=== PATIENT | female | born 1975 | race African-American/Black ===

== ENCOUNTER 2020-05-13 01:00 | Inpatient (IN) | payer BC ==
[~2020-05-13] VITALS: Ht 180.3 cm; Wt 92.2 kg
[2020-05-13] VITALS (9 sets, daily range): BP systolic 106–145; BP diastolic 51–75
[2020-05-13] MEDS ORDERED: UNABLE MC (01:57)
--- NOTE | 2020-05-13 02:13 | PHYS DOC ---
Past Medical History Past Medical History: Diabetes-Type II Past Surgical History: No Surgical History Smoking Status: Never Smoker Alcohol Use: None Drug Use: None General Adult EDM: Chief Complaint: BLOOD SUGAR PROBLEM HPI: HPI: 45-year-old female presents to the emergency department with abdominal pain, na usea and vomiting, and extreme fatigue which has been worse over the last 2 days. Last week she was diagnosed with type 2 diabetes for which she was given metformin. She has been taking her metformin and checking her blood sugars daily and states that it is been consistently in the 240s. She is progressively felt more fatigued over the past week and called her primary care physician this morning for which she gave her a one-time dosage of Ozempic. She states that this did not help and only made it worse. This evening at 2200 she took her blood sugar medication, but she threw it up soon after. She states that she no longer feels abdominal pain but she does feel lightheaded, fatigued, and shortness of breath. Patient states that she checked her urine for ketones and said that it was "moderate". Denies . Review of Systems: Review of Systems: Constitutional: Denies fever or chills; reports malaise and fatigue Eyes: Denies redness or eye pain HENT: Denies nasal congestion or sore throat Respiratory: Denies cough or shortness of breath Cardiovascular: Denies chest pain or palpitations GI: Reports abdominal pain, nausea, and vomiting : Denies dysuria or hematuria Musculoskeletal: Denies back pain or joint pain Integument: Denies rash or skin lesions Neurologic: Denies headache, focal weakness or sensory changes Complete systems were reviewed and found to be within normal limits, except as documented in this note. Allergies: Allergies: Allergies Coded Allergies Type Severity Reaction Last Updated Verified No Known Drug Allergies 05/13/20 No Physical Exam: PE: Constitutional: Well developed, well nourished, no acute distress, non-toxic appearance HENT: Normocephalic, atraumatic, oropharynx tacky Eyes: PERRL, EOMI, conjunctiva normal, no discharge, no nystagmus Neck: Normal range of motion, supple Lungs & Thorax: No acute respiratory distress. Regular rise and fall the chest bilaterally. Abdomen: Soft, no tenderness Skin: Warm, dry, no erythema, no rash Extremities: No tenderness, ROM intact, no edema Neurologic: Alert and oriented X 3, normal motor function, normal sensory function, no focal deficits noted Psychologic: Affect normal, judgment normal Current Patient Data: Labs: Laboratory Tests Test 05/13/20 01:44 Glucose (Fingerstick) 272 mg/dL (70-99) H EKG: EKG: [] Radiology/Procedures: Radiology/Procedures: [] Course & Med Decision Making: Course & Med Decision Making Patient presented to the emergency department for nausea, vomiting, feeling lightheaded, and feeling progressively fatigued. She was diagnosed with diabetes 1 week ago. She has not been able to control her blood sugar since that time she was diagnosed with diabetes. Patient states that she vomited tonight before she came to emergency department and feels very lightheaded and weak. Labs obtained and posted to chart. Significant hyponatremia noted. Glucose elevated. Correct serum sodium still significantly low. IVF hydration given. Hyperglycemia addressed. Hypomagnesemia also addressed. Patient requiring admission for further evaluation and treatment. Discussed with Dr. Maya (hospitalist) who is in agreement with admission. Discussed findings and plan with patient, who acknowledges understanding and agreement. Dragon Disclaimer: Dragon Disclaimer: This electronic medical record was generated, in whole or in part, using a voice recognition dictation system. Departure Departure Impression: Primary Impression: Hyponatremia Additional Impressions: Hyperglycemia Hypomagnesemia Disposition: ADMITTED INPATIENT Admitting Physician: KATLIN (Gaudencio) Condition: STABLE Referrals: JANAE TAYLOR MD (PCP) Justicifation of Admission Dx: Justifications for Admission: Justification of Admission Dx: Yes Comments: Hyponatremia, Hyperglycemia, Hypomagnesemia Critical Care Time Critical care time was 30 minutes which includes time at bedside, spent in discussion of patient's care with specialists and/or family members, with interpretation of laboratory and/or radiological studies and is exclusive of procedures. JANAE GALLO DO May 13, 2020 02:13
[2020-05-13 02:20] LABS: BILIRUBIN,URINE SMALL (NEG); CLARITY,URINE CLEAR; COLOR,URINE YELLOW; NITRITE,URINE NEGATIVE (NEG); PROTEIN,URINE NEGATIVE (NEG-TRACE); UROBILINOGEN,URINE 0.2 mg/dL (0.2 mg/dL)
[2020-05-13 02:26] LABS: BACTERIA,URINE MODERATE /HPF (0-FEW); RBC,URINE 0 /HPF (0-2); SQUAMOUS EPITHELIAL CELL,UR FEW /LPF
[2020-05-13 02:27] LABS: AMORPHOUS SEDIMENT,UR PRESENT /HPF; GRANULAR CASTS,URINE FEW /HPF; HYALINE CASTS, URINE MODERATE /HPF
[2020-05-13] MEDS ORDERED: ONDANSETRON PF 4 MG/2 ML VIAL. IVP ONE (02:30)
[2020-05-13] MEDS ORDERED: IV NORMAL SALINE 1000ML BAG 1,000 ML IV ONE ×2 (02:30→04:30)
[2020-05-13] MEDS ORDERED: FAMOTIDINE 20 MG/2 ML VIAL IVP ONE (02:30)
[2020-05-13 03:47] LABS: BASO # 0.1 x10^3/uL (0.0-0.2); BASO % 1 % (0-3); EOS % 0 % (0-3); HEMATOCRIT 35.4 % (36.0-47.0); HEMOGLOBIN 12.4 g/dL (12.0-15.5); LYMPH # 2.5 x10^3/uL (1.0-4.8); LYMPH % 21 % (24-48); MEAN CORPUSCULAR HEMOGLOBIN 31 pg (25-35); MEAN CORPUSCULAR HGB CONC 35 g/dL (31-37); MEAN CORPUSCULAR VOLUME 88 fL (79-100); MONO # 0.8 x10^3/uL (0.0-1.1); MONO % 7 % (0-9); NEUT # 8.7 x10^3/uL (1.8-7.7); NEUT % 72 % (31-73); PLATELET COUNT 397 x10^3/uL (140-400); RED BLOOD COUNT 4.05 x10^6/uL (3.50-5.40); RED CELL DISTRIBUTION WIDTH 13.7 % (11.5-14.5); WHITE BLOOD COUNT 12.1 x10^3/uL (4.0-11.0)
[2020-05-13 04:03] LABS: ALBUMIN/GLOBULIN RATIO 1.1 (1.0-1.7); CALCIUM 9.4 mg/dL (8.5-10.1); CREATININE 0.9 mg/dL (0.6-1.0); GFR 81.6; MAGNESIUM 1.7 mg/dL (1.8-2.4); POTASSIUM 4.1 mmol/L (3.5-5.1); TOTAL BILIRUBIN 1.8 mg/dL (0.2-1.0); TOTAL PROTEIN 7.8 g/dL (6.4-8.2)
[2020-05-13] MEDS ORDERED: ONDANSETRON PF 4 MG/2 ML VIAL. IV PRN ×2 (04:15→10:15)
[2020-05-13] MEDS ORDERED: DEXTROSE 50% 25 GM / 50ML DISP.SYRIN. IV PRN (04:15)
[2020-05-13] MEDS ORDERED: MAGNESIUM SULFATE 2GM 50 ML IV ONE (04:30)
[2020-05-13] MEDS ORDERED: INSULIN REGULAR 100 UNIT/ML 3ML VIAL. SQ ONE (04:30)
[2020-05-13] MEDS: INSULIN LISPRO 300 UNITS/3 ML VIAL. SQ SCH ×2 (08:00→12:24)
--- NOTE | 2020-05-13 08:41 | PDOC1 ---
History and Physical Date of Admission Date of Admission DATE: 05/13/20 TIME: 08:40 Identification/Chief Complaint Chief Complaint weakness , low na , seen in ER WITH NA 114 Source Source: Patient History of Present Illness History of Present Illness SEEN IN ER WITH HYPERGLYCEMIA, 45-year-old female presents to the emergency department with abdominal pain, nausea and vomiting, and extreme fatigue which has been worse over the last 2 days. Last week she was diagnosed with type 2 diabetes for which she was given metformin. She has been taking her metformin and checking her blood sugars daily and states that it is been consistently in the 240s. progressively felt more fatigued over the past week and called her primary care physician this morning for which she gave her a one-time dosage of Ozempic. She states that this did not help and only made it worse. This evening at 2200 she took her blood sugar medication, but she threw it up soon after. She states that she no longer feels abdominal pain but she does feel lightheaded, fatigued, and shortness of breath. Patient states that she checked her urine for ketones and said that it was "moderate". 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, drinks about 8 8 oz glasses of h2o a day, new dx diabetes this past Sunday Past Medical History Past Medical History Past Medical History Past Medical History Past Medical History: Diabetes-Type II Past Surgical History: No Surgical History Smoking Status: Never Smoker Alcohol Use: None Drug Use: None Endocrine: Diabetes Family History Family History: Hypertension Social History Smoke: No ALCOHOL: occassional Drugs: None Current Problem List Problem List Problems Medical Problems: (1) Hypomagnesemia Status: Acute Current Medications Current Medications Current Medications Sodium Chloride 1,000 ml @ 1,000 mls/hr 1X ONCE IV Last administered on 05/13/20at 03:45; Start 05/13/20 at 02:30; Stop 05/13/20 at 03:29; Status DC Ondansetron HCl (Zofran) 4 mg 1X ONCE IVP Last administered on 05/13/20at 03:45; Start 05/13/20 at 02:30; Stop 05/13/20 at 02:31; Status DC Famotidine (Pepcid Vial) 20 mg 1X ONCE IVP Last administered on 05/13/20at 03:45; Start 05/13/20 at 02:30; Stop 05/13/20 at 02:31; Status DC Ondansetron HCl (Zofran) 4 mg PRN Q8HRS PRN IV NAUSEA/VOMITING 1ST CHOICE; Start 05/13/20 at 04:15; Stop 05/14/20 at 04:14 Sodium Chloride 1,000 ml @ 100 mls/hr 1X ONCE IV Last administered on 05/13/20at 07:21; Start 05/13/20 at 04:30; Stop 05/13/20 at 14:29 Insulin Human Lispro (HumaLOG) 0-5 UNITS TIDWMEALS SQ ; Start 05/13/20 at 08:00 Dextrose (Dextrose 50%-Water Syringe) 12.5 gm PRN Q15MIN PRN IV SEE COMMENTS; Start 05/13/20 at 04:15 Insulin Human Regular (HumuLIN R VIAL) 8 unit 1X ONCE SQ Last administered on 05/13/20at 07:32; Start 05/13/20 at 04:30; Stop 05/13/20 at 04:31; Status DC Magnesium Sulfate 50 ml @ 25 mls/hr 1X ONCE IV Last administered on 05/13/20at 07:24; Start 05/13/20 at 04:30; Stop 05/13/20 at 06:29; Status DC Active Scripts Active Reported Unable To Obtain Meds From Prior To Admit (Info) Each 1 Each Allergies Allergies: Coded Allergies: No Known Drug Allergies (Unverified , 05/13/20) ROS Review of System Review of Systems: Constitutional: Denies fever or chills; reports malaise and fatigue Eyes: Denies redness or eye pain HENT: Denies nasal congestion or sore throat Respiratory: Denies cough or shortness of breath Cardiovascular: Denies chest pain or palpitations GI: Reports abdominal pain, nausea, and vomiting : Denies dysuria or hematuria Musculoskeletal: Denies back pain or joint pain Integument: Denies rash or skin lesions Neurologic: Denies headache, focal weakness or sensory changes 14 PT systems were reviewed and found to be within normal limits, except as documented General: YES: Fatigue, Malaise ALLERGY AND IMMUNOLOGY: No: Hives, Insect Bite Sensitivity, Itchy/Watery Eyes, Nasal Congestion, Post Nasal Drip, Seasonal Allergies, Other Gastrointestinal: Yes Nausea Physical Exam Physical Exam PE: Constitutional: Well developed, well nourished, no acute distress, non-toxic appearance HENT: Normocephalic, atraumatic, oropharynx wnl Eyes: PERRL, EOMI, conjunctiva normal, no discharge, no nystagmus Neck: Normal range of motion, supple Lungs & Thorax: No acute respiratory distress. Regular rise and fall the chest bilaterally. Abdomen: Soft, no tenderness Skin: Warm, dry, no erythema, no rash Extremities: No tenderness, ROM intact, no edema Neurologic: Alert and oriented X 3, normal motor function, normal sensory function, no focal deficits noted Psychologic: Affect normal, judgment normal General: Alert, Oriented X3, Cooperative, No acute distress HEENT: Atraumatic, EOMI, Mucous membr. moist/pink Lungs: Clear to auscultation, Normal air movement Heart: RRR, no thrills Breasts: Not examined Abdomen: Normal bowel sounds, Soft, No tenderness Rectal Exam: not examined PELVIC: Examination not indicated Extremities: No cyanosis, No edema Skin: No rashes, No significant lesion Neuro: Normal speech, Normal tone, Cranial nerves 3-12 NL Psych/Mental Status: Mental status NL, Mood NL Vitals Vitals Vital Signs Date Time Temp Pulse Resp B/P (MAP) Pulse Ox O2 Delivery O2 Flow Rate FiO2 05/13/20 04:15 92 18 149/68 (95) 100 Room Air 05/13/20 01:42 98.3 98.3 Labs Labs Laboratory Tests Test 05/13/20 01:44 05/13/20 02:10 05/13/20 02:21 05/13/20 03:40 Glucose (Fingerstick) 272 mg/dL (70-99) Urine Collection Type Unknown Urine Color Yellow Urine Clarity Clear Urine pH 5.0 (<5.0-8.0) Urine Specific [place] >=1.030 (1.000-1.030) Urine Protein Negative mg/dL (NEG-TRACE) Urine Glucose (UA) >=1000 mg/dL (NEG) Urine Ketones (Stick) >=80 mg/dL (NEG) Urine Blood Negative (NEG) Urine Nitrite Negative (NEG) Urine Bilirubin Small (NEG) Urine Urobilinogen Dipstick 0.2 mg/dL (0.2 mg/dL) Urine Leukocyte Esterase Negative (NEG) Urine RBC 0 /HPF (0-2) Urine WBC 1-4 /HPF (0-4) Urine Squamous Epithelial Cells Few /LPF Urine Amorphous Sediment Present /HPF Urine Bacteria Moderate /HPF (0-FEW) Urine Hyaline Casts Moderate /HPF Urine Granular Casts Few /HPF Urine Mucus Mod /LPF Bedside Urine HCG, Qualitative Hcg negative (Negative) White Blood Count 12.1 x10^3/uL (4.0-11.0) Red Blood Count 4.05 x10^6/uL (3.50-5.40) Hemoglobin 12.4 g/dL (12.0-15.5) Hematocrit 35.4 % (36.0-47.0) Mean Corpuscular Volume 88 fL (79-100) Mean Corpuscular Hemoglobin 31 pg (25-35) Mean Corpuscular Hemoglobin Concent 35 g/dL (31-37) Red Cell Distribution Width 13.7 % (11.5-14.5) Platelet Count 397 x10^3/uL (140-400) Neutrophils (%) (Auto) 72 % (31-73) Lymphocytes (%) (Auto) 21 % (24-48) Monocytes (%) (Auto) 7 % (0-9) Eosinophils (%) (Auto) 0 % (0-3) Basophils (%) (Auto) 1 % (0-3) Neutrophils # (Auto) 8.7 x10^3/uL (1.8-7.7) Lymphocytes # (Auto) 2.5 x10^3/uL (1.0-4.8) Monocytes # (Auto) 0.8 x10^3/uL (0.0-1.1) Eosinophils # (Auto) 0.0 x10^3/uL (0.0-0.7) Basophils # (Auto) 0.1 x10^3/uL (0.0-0.2) Sodium Level 114 mmol/L (136-145) Potassium Level 4.1 mmol/L (3.5-5.1) Chloride Level 79 mmol/L (98-107) Carbon Dioxide Level 15 mmol/L (21-32) Anion Gap 20 (6-14) Blood Urea Nitrogen 11 mg/dL (7-20) Creatinine 0.9 mg/dL (0.6-1.0) Estimated GFR (Cockcroft-Gault) 81.6 BUN/Creatinine Ratio 12 (6-20) Glucose Level 285 mg/dL (70-99) Calcium Level 9.4 mg/dL (8.5-10.1) Magnesium Level 1.7 mg/dL (1.8-2.4) Total Bilirubin 1.8 mg/dL (0.2-1.0) Aspartate Amino Transf (AST/SGOT) 21 U/L (15-37) Alanine Aminotransferase (ALT/SGPT) 24 U/L (14-59) Alkaline Phosphatase 69 U/L (46-116) Total Protein 7.8 g/dL (6.4-8.2) Albumin 4.0 g/dL (3.4-5.0) Albumin/Globulin Ratio 1.1 (1.0-1.7) Acetone Level Neg (NEG) Test 05/13/20 07:29 05/13/20 08:05 Glucose (Fingerstick) 254 mg/dL (70-99) 254 mg/dL (70-99) Laboratory Tests Test 05/13/20 01:44 05/13/20 02:10 05/13/20 02:21 05/13/20 03:40 Glucose (Fingerstick) 272 mg/dL (70-99) Urine Collection Type Unknown Urine Color Yellow Urine Clarity Clear Urine pH 5.0 (<5.0-8.0) Urine Specific [place] >=1.030 (1.000-1.030) Urine Protein Negative mg/dL (NEG-TRACE) Urine Glucose (UA) >=1000 mg/dL (NEG) Urine Ketones (Stick) >=80 mg/dL (NEG) Urine Blood Negative (NEG) Urine Nitrite Negative (NEG) Urine Bilirubin Small (NEG) Urine Urobilinogen Dipstick 0.2 mg/dL (0.2 mg/dL) Urine Leukocyte Esterase Negative (NEG) Urine RBC 0 /HPF (0-2) Urine WBC 1-4 /HPF (0-4) Urine Squamous Epithelial Cells Few /LPF Urine Amorphous Sediment Present /HPF Urine Bacteria Moderate /HPF (0-FEW) Urine Hyaline Casts Moderate /HPF Urine Granular Casts Few /HPF Urine Mucus Mod /LPF Bedside Urine HCG, Qualitative Hcg negative (Negative) White Blood Count 12.1 x10^3/uL (4.0-11.0) Red Blood Count 4.05 x10^6/uL (3.50-5.40) Hemoglobin 12.4 g/dL (12.0-15.5) Hematocrit 35.4 % (36.0-47.0) Mean Corpuscular Volume 88 fL (79-100) Mean Corpuscular Hemoglobin 31 pg (25-35) Mean Corpuscular Hemoglobin Concent 35 g/dL (31-37) Red Cell Distribution Width 13.7 % (11.5-14.5) Platelet Count 397 x10^3/uL (140-400) Neutrophils (%) (Auto) 72 % (31-73) Lymphocytes (%) (Auto) 21 % (24-48) Monocytes (%) (Auto) 7 % (0-9) Eosinophils (%) (Auto) 0 % (0-3) Basophils (%) (Auto) 1 % (0-3) Neutrophils # (Auto) 8.7 x10^3/uL (1.8-7.7) Lymphocytes # (Auto) 2.5 x10^3/uL (1.0-4.8) Monocytes # (Auto) 0.8 x10^3/uL (0.0-1.1) Eosinophils # (Auto) 0.0 x10^3/uL (0.0-0.7) Basophils # (Auto) 0.1 x10^3/uL (0.0-0.2) Sodium Level 114 mmol/L (136-145) Potassium Level 4.1 mmol/L (3.5-5.1) Chloride Level 79 mmol/L (98-107) Carbon Dioxide Level 15 mmol/L (21-32) Anion Gap 20 (6-14) Blood Urea Nitrogen 11 mg/dL (7-20) Creatinine 0.9 mg/dL (0.6-1.0) Estimated GFR (Cockcroft-Gault) 81.6 BUN/Creatinine Ratio 12 (6-20) Glucose Level 285 mg/dL (70-99) Calcium Level 9.4 mg/dL (8.5-10.1) Magnesium Level 1.7 mg/dL (1.8-2.4) Total Bilirubin 1.8 mg/dL (0.2-1.0) Aspartate Amino Transf (AST/SGOT) 21 U/L (15-37) Alanine Aminotransferase (ALT/SGPT) 24 U/L (14-59) Alkaline Phosphatase 69 U/L (46-116) Total Protein 7.8 g/dL (6.4-8.2) Albumin 4.0 g/dL (3.4-5.0) Albumin/Globulin Ratio 1.1 (1.0-1.7) Acetone Level Neg (NEG) Test 05/13/20 07:29 05/13/20 08:05 Glucose (Fingerstick) 254 mg/dL (70-99) 254 mg/dL (70-99) VTE Prophylaxis Ordered VTE Prophylaxis Devices: Yes VTE Pharmacological Prophylaxi: Yes Assessment/Plan Assessment/Plan Impression: Hyponatremia, SEVERE , diif dx psychogenic h20 intake, hypothyroid, [place]'s MORBID OBESITY Hyperglycemia, HX DIABETES, UNCONTROLLED Hypomagnesemia METABOLIC ACIDOSIS ? SEC METFORMIN ADMITTED SERUM OSMOLALITY URINE OSMOLALITY BMP STAT NOW Consult nephrology TSH CXR a1c accuchecks dvt prophylaxis am, pm cortisol fluid restrict 77 min pt exam, chart review, > 50% of time spent with exam, chart review, pt care coordination Justicifation of Admission Dx: Justifications for Admission: Justification of Admission Dx: Yes MARISSA URBINA MD May 13, 2020 08:41
[2020-05-13] MEDS ORDERED: 0.9 % SODIUM CHLORIDE 10 ML DISP.SYRIN. IV PRN (10:15)
[2020-05-13] MEDS ORDERED: ACETAMINOPHEN 325 MG TABLET. PO PRN (10:15)
[2020-05-13] MEDS ORDERED: guaiFENesin ORAL 200 MG/10 ML LIQUID. PO PRN (10:15)
[2020-05-13] MEDS ORDERED: DOCUSATE SODIUM 100 MG CAPSULE. PO PRN (10:15)
[2020-05-13] MEDS ORDERED: cloNIDine HCL 0.1 MG TABLET PO PRN (10:15)
[2020-05-13] MEDS ORDERED: ALBUTEROL SULFATE 2.5 MG/3 ML NEBU. NEB PRN (10:15)
[2020-05-13] MEDS ORDERED: SODIUM PHOSPHATES 19/7GM 133 ML ENEMA. PR PRN (10:15)
[2020-05-13 10:47] LABS: CALCIUM 8.7 mg/dL (8.5-10.1); CREATININE 0.6 mg/dL (0.6-1.0); GFR 130.2; POTASSIUM 4.1 mmol/L (3.5-5.1)
[2020-05-13] MEDS ORDERED: DILT240C33 PO (11:27)
[2020-05-13] MEDS ORDERED: ERGO500027 PO (11:27)
[2020-05-13] MEDS ORDERED: CRESTOR40 MG PO (11:27)
[2020-05-13] MEDS ORDERED: LISI-334 PO (11:27)
[2020-05-13] MEDS ORDERED: SPIR50TA4 PO (11:27)
[2020-05-13] MEDS ORDERED: METF500T16 PO (11:27)
[2020-05-13] MEDS ORDERED: HYDR12.58 PO (11:27)
--- NOTE | 2020-05-13 11:55 | PDOC2 ---
CONSULT Date of Consult Date of Consult DATE: 05/13/20 TIME: 11:50 Reason for Consult Reason for Consult: LOW NA Referring Physician Referring Physician: CIARA Identification/Chief Complaint Chief Complaint NOT FEELING WELL, BODY ACHES AND CRAMPS Source Source: Chart review, Patient History of Present Illness Reason for Visit: THIS IS A 45 YR OLD NOT FEELING WELL. BODY CRAMPS AND ABD PAIN WITH N/V AND FATIGUE. NEW DX OF DM II FOR WHICH SHE WA STARTED ON METFORMIN. NA OF 114 AND RECHECK OF 118. HAS BEEN ON ALDACTONE FOR YEARS FOR SOME SKIN CONDITION AND ON HCTZ FOR HTN FOR YEARS. DENIED ANY EXCESSIVE WATER INTAKE. NO LOW BP HX NOTED. BG UP IN THE MID 200'S WITH MILD MET ACIDOSIS. RENAL FXN IS STABLE Past Medical History Cardiovascular: HTN Renal/: No pertinent hx Endocrine: Diabetes Family History Family History: Hypertension Social History No ALCOHOL: occassional Drugs: None Current Problem List Problem List Problems Medical Problems: (1) Hypomagnesemia Status: Acute Current Medications Current Medications Current Medications Sodium Chloride 1,000 ml @ 1,000 mls/hr 1X ONCE IV Last administered on 05/13/20at 03:45; Start 05/13/20 at 02:30; Stop 05/13/20 at 03:29; Status DC Ondansetron HCl (Zofran) 4 mg 1X ONCE IVP Last administered on 05/13/20at 03:45; Start 05/13/20 at 02:30; Stop 05/13/20 at 02:31; Status DC Famotidine (Pepcid Vial) 20 mg 1X ONCE IVP Last administered on 05/13/20at 03:45; Start 05/13/20 at 02:30; Stop 05/13/20 at 02:31; Status DC Ondansetron HCl (Zofran) 4 mg PRN Q8HRS PRN IV NAUSEA/VOMITING 1ST CHOICE; Start 05/13/20 at 04:15; Stop 05/14/20 at 04:14 Sodium Chloride 1,000 ml @ 100 mls/hr 1X ONCE IV Last administered on 05/13/20at 07:21; Start 05/13/20 at 04:30; Stop 05/13/20 at 14:29 Insulin Human Lispro (HumaLOG) 0-5 UNITS TIDWMEALS SQ ; Start 05/13/20 at 08:00 Dextrose (Dextrose 50%-Water Syringe) 12.5 gm PRN Q15MIN PRN IV SEE COMMENTS; Start 05/13/20 at 04:15 Insulin Human Regular (HumuLIN R VIAL) 8 unit 1X ONCE SQ Last administered on 05/13/20at 07:32; Start 05/13/20 at 04:30; Stop 05/13/20 at 04:31; Status DC Magnesium Sulfate 50 ml @ 25 mls/hr 1X ONCE IV Last administered on 05/13/20at 07:24; Start 05/13/20 at 04:30; Stop 05/13/20 at 06:29; Status DC Sodium Chloride (Normal Saline Flush) 3 ml QSHIFT PRN IV AFTER MEDS AND BLOOD DRAWS; Start 05/13/20 at 10:15 Ondansetron HCl (Zofran) 4 mg PRN Q4HRS PRN IV NAUSEA/VOMITING; Start 05/13/20 at 10:15 Acetaminophen (Tylenol) 650 mg PRN Q4HRS PRN PO TEMP OVER 100.4F OR MILD PAIN; Start 05/13/20 at 10:15 Clonidine HCl (Catapres) 0.1 mg PRN Q6HRS PRN PO SBP>160 OR DBP>90; Start 05/13/20 at 10:15 Sodium Monofluorophosphate (Fleet Adult) 133 ml PRN DAILY PRN [place] CONSTIPATION; Start 05/13/20 at 10:15 Docusate Sodium (Colace) 100 mg PRN BID PRN PO HARD STOOLS; Start 05/13/20 at 10:15 Albuterol Sulfate (Ventolin Neb Soln) 2.5 mg PRN Q4HRS PRN NEB SHORTNESS OF BREATH; Start 05/13/20 at 10:15 Guaifenesin (Robitussin) 200 mg PRN Q4HRS PRN PO COUGH; Start 05/13/20 at 10:15 Enoxaparin Sodium (Lovenox 40mg Syringe) 40 mg Q24H SQ ; Start 05/13/20 at 11:00 Active Scripts Active Reported Vitamin D2 (Ergocalciferol (Vitamin D2)) 1,250 Mcg Capsule 1,250 Mcg PO QSA Diltiazem 24Hr Cd (Diltiazem HCl) 240 Mg Cap.er.24h 240 Mg PO DAILY Lisinopril 20 Mg Tablet 20 Mg PO DAILY Spironolactone 50 Mg Tablet 1 Tab PO DAILY Crestor (Rosuvastatin Calcium) 40 Mg Tablet 20 Mg PO HS Hydrochlorothiazide Tablet (Hydrochlorothiazide) 12.5 Mg Tablet 12.5 Mg PO DAILY Metformin Hcl 500 Mg Tablet 500 Mg PO BIDWMEALS Allergies Allergies: Coded Allergies: No Known Drug Allergies (Unverified , 05/13/20) ROS General: YES: Fatigue, Malaise PSYCHOLOGICAL ROS: YES: Anxiety Eyes: Yes Decreased vision Respiratory: YES: Cough Gastrointestinal: Yes Nausea, Yes Vomiting, Yes Abdominal Pain Genitourinary: YES Other (MILD FREQUENCY) Musculoskeletal: Yes Muscular Weakness Neurological: Yes Weakness Skin: Yes Dry Skin Physical Exam General: Alert, Oriented X3, Cooperative, No acute distress HEENT: Atraumatic, PERRLA Lungs: Clear to auscultation Heart: Regular rate Abdomen: Normal bowel sounds, Soft, No tenderness Skin: No rashes Neuro: Normal speech, Sensation intact Psych/Mental Status: Mental status NL, Mood NL MUSCULOSKELETAL: No joint tenderness, No deformity Vitals VITALS Vital Signs Date Time Temp Pulse Resp B/P (MAP) Pulse Ox O2 Delivery O2 Flow Rate FiO2 05/13/20 11:48 98.6 105 18 124/73 (90) 97 Room Air 98.6 Labs Labs Laboratory Tests Test 05/13/20 01:44 05/13/20 02:10 05/13/20 02:21 05/13/20 03:40 Glucose (Fingerstick) 272 mg/dL (70-99) Urine Collection Type Unknown Urine Color Yellow Urine Clarity Clear Urine pH 5.0 (<5.0-8.0) Urine Specific [place] >=1.030 (1.000-1.030) Urine Protein Negative mg/dL (NEG-TRACE) Urine Glucose (UA) >=1000 mg/dL (NEG) Urine Ketones (Stick) >=80 mg/dL (NEG) Urine Blood Negative (NEG) Urine Nitrite Negative (NEG) Urine Bilirubin Small (NEG) Urine Urobilinogen Dipstick 0.2 mg/dL (0.2 mg/dL) Urine Leukocyte Esterase Negative (NEG) Urine RBC 0 /HPF (0-2) Urine WBC 1-4 /HPF (0-4) Urine Squamous Epithelial Cells Few /LPF Urine Amorphous Sediment Present /HPF Urine Bacteria Moderate /HPF (0-FEW) Urine Hyaline Casts Moderate /HPF Urine Granular Casts Few /HPF Urine Mucus Mod /LPF Bedside Urine HCG, Qualitative Hcg negative (Negative) White Blood Count 12.1 x10^3/uL (4.0-11.0) Red Blood Count 4.05 x10^6/uL (3.50-5.40) Hemoglobin 12.4 g/dL (12.0-15.5) Hematocrit 35.4 % (36.0-47.0) Mean Corpuscular Volume 88 fL (79-100) Mean Corpuscular Hemoglobin 31 pg (25-35) Mean Corpuscular Hemoglobin Concent 35 g/dL (31-37) Red Cell Distribution Width 13.7 % (11.5-14.5) Platelet Count 397 x10^3/uL (140-400) Neutrophils (%) (Auto) 72 % (31-73) Lymphocytes (%) (Auto) 21 % (24-48) Monocytes (%) (Auto) 7 % (0-9) Eosinophils (%) (Auto) 0 % (0-3) Basophils (%) (Auto) 1 % (0-3) Neutrophils # (Auto) 8.7 x10^3/uL (1.8-7.7) Lymphocytes # (Auto) 2.5 x10^3/uL (1.0-4.8) Monocytes # (Auto) 0.8 x10^3/uL (0.0-1.1) Eosinophils # (Auto) 0.0 x10^3/uL (0.0-0.7) Basophils # (Auto) 0.1 x10^3/uL (0.0-0.2) Sodium Level 114 mmol/L (136-145) Potassium Level 4.1 mmol/L (3.5-5.1) Chloride Level 79 mmol/L (98-107) Carbon Dioxide Level 15 mmol/L (21-32) Anion Gap 20 (6-14) Blood Urea Nitrogen 11 mg/dL (7-20) Creatinine 0.9 mg/dL (0.6-1.0) Estimated GFR (Cockcroft-Gault) 81.6 BUN/Creatinine Ratio 12 (6-20) Glucose Level 285 mg/dL (70-99) Calcium Level 9.4 mg/dL (8.5-10.1) Magnesium Level 1.7 mg/dL (1.8-2.4) Total Bilirubin 1.8 mg/dL (0.2-1.0) Aspartate Amino Transf (AST/SGOT) 21 U/L (15-37) Alanine Aminotransferase (ALT/SGPT) 24 U/L (14-59) Alkaline Phosphatase 69 U/L (46-116) Total Protein 7.8 g/dL (6.4-8.2) Albumin 4.0 g/dL (3.4-5.0) Albumin/Globulin Ratio 1.1 (1.0-1.7) Thyroid Stimulating Hormone (TSH) 1.041 uIU/mL (0.358-3.74) Acetone Level Neg (NEG) Test 05/13/20 07:29 05/13/20 08:05 05/13/20 10:30 05/13/20 11:39 Glucose (Fingerstick) 254 mg/dL (70-99) 254 mg/dL (70-99) 227 mg/dL (70-99) Sodium Level 118 mmol/L (136-145) Potassium Level 4.1 mmol/L (3.5-5.1) Chloride Level 85 mmol/L (98-107) Carbon Dioxide Level 19 mmol/L (21-32) Anion Gap 14 (6-14) Blood Urea Nitrogen 8 mg/dL (7-20) Creatinine 0.6 mg/dL (0.6-1.0) Estimated GFR (Cockcroft-Gault) 130.2 Glucose Level 212 mg/dL (70-99) Calcium Level 8.7 mg/dL (8.5-10.1) Cortisol AM Sample 26.7 ug/dL (4.3-22.4) Laboratory Tests Test 05/13/20 01:44 05/13/20 02:10 05/13/20 02:21 05/13/20 03:40 Glucose (Fingerstick) 272 mg/dL (70-99) Urine Collection Type Unknown Urine Color Yellow Urine Clarity Clear Urine pH 5.0 (<5.0-8.0) Urine Specific [place] >=1.030 (1.000-1.030) Urine Protein Negative mg/dL (NEG-TRACE) Urine Glucose (UA) >=1000 mg/dL (NEG) Urine Ketones (Stick) >=80 mg/dL (NEG) Urine Blood Negative (NEG) Urine Nitrite Negative (NEG) Urine Bilirubin Small (NEG) Urine Urobilinogen Dipstick 0.2 mg/dL (0.2 mg/dL) Urine Leukocyte Esterase Negative (NEG) Urine RBC 0 /HPF (0-2) Urine WBC 1-4 /HPF (0-4) Urine Squamous Epithelial Cells Few /LPF Urine Amorphous Sediment Present /HPF Urine Bacteria Moderate /HPF (0-FEW) Urine Hyaline Casts Moderate /HPF Urine Granular Casts Few /HPF Urine Mucus Mod /LPF Bedside Urine HCG, Qualitative Hcg negative (Negative) White Blood Count 12.1 x10^3/uL (4.0-11.0) Red Blood Count 4.05 x10^6/uL (3.50-5.40) Hemoglobin 12.4 g/dL (12.0-15.5) Hematocrit 35.4 % (36.0-47.0) Mean Corpuscular Volume 88 fL (79-100) Mean Corpuscular Hemoglobin 31 pg (25-35) Mean Corpuscular Hemoglobin Concent 35 g/dL (31-37) Red Cell Distribution Width 13.7 % (11.5-14.5) Platelet Count 397 x10^3/uL (140-400) Neutrophils (%) (Auto) 72 % (31-73) Lymphocytes (%) (Auto) 21 % (24-48) Monocytes (%) (Auto) 7 % (0-9) Eosinophils (%) (Auto) 0 % (0-3) Basophils (%) (Auto) 1 % (0-3) Neutrophils # (Auto) 8.7 x10^3/uL (1.8-7.7) Lymphocytes # (Auto) 2.5 x10^3/uL (1.0-4.8) Monocytes # (Auto) 0.8 x10^3/uL (0.0-1.1) Eosinophils # (Auto) 0.0 x10^3/uL (0.0-0.7) Basophils # (Auto) 0.1 x10^3/uL (0.0-0.2) Sodium Level 114 mmol/L (136-145) Potassium Level 4.1 mmol/L (3.5-5.1) Chloride Level 79 mmol/L (98-107) Carbon Dioxide Level 15 mmol/L (21-32) Anion Gap 20 (6-14) Blood Urea Nitrogen 11 mg/dL (7-20) Creatinine 0.9 mg/dL (0.6-1.0) Estimated GFR (Cockcroft-Gault) 81.6 BUN/Creatinine Ratio 12 (6-20) Glucose Level 285 mg/dL (70-99) Calcium Level 9.4 mg/dL (8.5-10.1) Magnesium Level 1.7 mg/dL (1.8-2.4) Total Bilirubin 1.8 mg/dL (0.2-1.0) Aspartate Amino Transf (AST/SGOT) 21 U/L (15-37) Alanine Aminotransferase (ALT/SGPT) 24 U/L (14-59) Alkaline Phosphatase 69 U/L (46-116) Total Protein 7.8 g/dL (6.4-8.2) Albumin 4.0 g/dL (3.4-5.0) Albumin/Globulin Ratio 1.1 (1.0-1.7) Thyroid Stimulating Hormone (TSH) 1.041 uIU/mL (0.358-3.74) Acetone Level Neg (NEG) Test 05/13/20 07:29 05/13/20 08:05 05/13/20 10:30 05/13/20 11:39 Glucose (Fingerstick) 254 mg/dL (70-99) 254 mg/dL (70-99) 227 mg/dL (70-99) Sodium Level 118 mmol/L (136-145) Potassium Level 4.1 mmol/L (3.5-5.1) Chloride Level 85 mmol/L (98-107) Carbon Dioxide Level 19 mmol/L (21-32) Anion Gap 14 (6-14) Blood Urea Nitrogen 8 mg/dL (7-20) Creatinine 0.6 mg/dL (0.6-1.0) Estimated GFR (Cockcroft-Gault) 130.2 Glucose Level 212 mg/dL (70-99) Calcium Level 8.7 mg/dL (8.5-10.1) Cortisol AM Sample 26.7 ug/dL (4.3-22.4) Assessment/Plan Assessment/Plan IMP SEVERE HYPONATREMIA NEW DX OF DM II HTN HX MET ACIDOSIS KETONURIA PLAN HYDRATION 3% SALINE CONSIDER INSULIN REPEAT UA S OSM URINE LYTES TSH WILL FOLLOW OSCAR MARTINEZ MD May 13, 2020 11:55
[2020-05-13] MEDS: ENOXAPARIN 40 MG/0.4 ML SYRINGE. SQ SCH (12:18)
--- NOTE | 2020-05-13 13:28 | RAD ---
ABDOMEN COMPLETE History: Reason: severe hyponatremia; NAUSEA/VOMITING / Spl. Instructions: / History: Comparison: None. Technique: Sonographic examination of the abdomen was performed and multiple grayscale and color Doppler static images were obtained. Findings: Liver demonstrates increased echogenicity. The liver measures 13.9 cm. Portal flow is patent. Common bile duct measures 4.3 mm in diameter. Gallbladder wall is normal. No cholelithiasis or pericholecystic fluid. Visualized pancreas is not well seen due to bowel gas. The right kidney measures 11.6 x 6.5 x 4.8 cm. No hydronephrosis. The left kidney measures 11.0 x 4.3 x 5.8 cm. No hydronephrosis. The spleen measures 7.7 cm. Visualized portions of the abdominal aorta and IVC are normal. IMPRESSION: 1. Increased hepatic echotexture, may indicate steatosis. Electronically signed by: Rashaun Goodman DO (05/13/2020 1:25 PM) [id number]
[2020-05-13] MEDS ORDERED: POTASSIUM CHLORIDE 10MEQ 100 ML IV PRN ×3 (14:30)
[2020-05-13] MEDS ORDERED: SODIUM CHLORIDE 3 % 500 ML IV ONE (14:30)
--- NOTE | 2020-05-13 15:14 | NUR ---
home meds sent with mother at bedside. pt wanted to keep Crestor as she does not want to take substitution. Crestor placed in ICU med basket for room 107
[2020-05-13] MEDS: INSULIN REGULAR VIAL 100 UNIT in IV NORMAL SALINE 100ML 100 ML IV PRN (15:16)
--- NOTE | 2020-05-13 16:11 | RAD ---
Single view of the chest. 05/13/2020 9:58 AM Indication: Reason: HYPONATREMIA / Spl. Instructions: / History: Comparison: None Findings: There is no focal consolidation. There is no pleural effusion or pneumothorax. The cardiomediastinal silhouette and pulmonary vasculature are within normal limits. No acute osseous abnormalities are seen. Impression: No evidence of acute cardiopulmonary process. Electronically signed by: Austin Berger MD (05/13/2020 4:08 PM) [id number]
[2020-05-13] MEDS: IV DEXTROSE 5% - 0.9 % NACL 1,000 ML IV SCH (16:25)
[2020-05-13 18:22] LABS: CALCIUM 7.9 mg/dL (8.5-10.1); CREATININE 0.8 mg/dL (0.6-1.0); GFR 93.4; POTASSIUM 3.3 mmol/L (3.5-5.1)
[2020-05-13 18:27] LABS: PHOSPHORUS 1.9 mg/dL (2.6-4.7)
[2020-05-13] MEDS: POTASSIUM PHOS,M-BASIC-D-BASIC 13.6 MMOL in IV NORMAL SALINE 250ML 250 ML IV SCH ×2 (19:13→23:00)
[2020-05-13 21:42] LABS: BILIRUBIN,URINE NEGATIVE (NEG); CLARITY,URINE CLEAR; COLOR,URINE YELLOW; NITRITE,URINE NEGATIVE (NEG); PH,URINE 5.5 (<5.0-8.0); PROTEIN,URINE NEGATIVE (NEG-TRACE); UROBILINOGEN,URINE 0.2 mg/dL (0.2 mg/dL)
[2020-05-13 21:54] LABS: BACTERIA,URINE MANY /HPF (0-FEW); RBC,URINE 0 /HPF (0-2); SQUAMOUS EPITHELIAL CELL,UR FEW /LPF
[2020-05-13] MEDS: NON FORMULARY ITEM (Rosuvastatin Calcium (Crestor) 20 MG) PO SCH (22:36)
[2020-05-13] MEDS: LISINOPRIL 20 MG TABLET PO SCH (22:37)
[2020-05-14] VITALS (15 sets, daily range): BP systolic 95–143; BP diastolic 38–69
[2020-05-14 00:09] LABS: HEMOGLOBIN A1C 10.6 % (4.8-5.6)
[2020-05-14] MEDS: IV DEXTROSE 5% - 0.9 % NACL 1,000 ML IV SCH (01:33)
[2020-05-14] MEDS: POTASSIUM PHOS,M-BASIC-D-BASIC 13.6 MMOL in IV NORMAL SALINE 250ML 250 ML IV SCH (03:27)
[2020-05-14] MEDS ORDERED: metFORMIN 500 MG TABLET PO SCH (08:00)
[2020-05-14 08:02] LABS: BASO # 0.1 x10^3/uL (0.0-0.2); BASO % 1 % (0-3); EOS % 0 % (0-3); HEMATOCRIT 29.1 % (36.0-47.0); HEMOGLOBIN 10.4 g/dL (12.0-15.5); LYMPH # 2.6 x10^3/uL (1.0-4.8); LYMPH % 35 % (24-48); MEAN CORPUSCULAR HEMOGLOBIN 31 pg (25-35); MEAN CORPUSCULAR HGB CONC 36 g/dL (31-37); MEAN CORPUSCULAR VOLUME 88 fL (79-100); MONO # 0.6 x10^3/uL (0.0-1.1); MONO % 8 % (0-9); NEUT # 4.1 x10^3/uL (1.8-7.7); NEUT % 55 % (31-73); PLATELET COUNT 373 x10^3/uL (140-400); RED BLOOD COUNT 3.33 x10^6/uL (3.50-5.40); WHITE BLOOD COUNT 7.4 x10^3/uL (4.0-11.0)
[2020-05-14 08:26] LABS: ALBUMIN 3.1 g/dL (3.4-5.0); CALCIUM 7.8 mg/dL (8.5-10.1); CREATININE 0.7 mg/dL (0.6-1.0); MAGNESIUM 2.1 mg/dL (1.8-2.4); PHOSPHORUS 3.5 mg/dL (2.6-4.7); POTASSIUM 3.1 mmol/L (3.5-5.1); TOTAL BILIRUBIN 1.4 mg/dL (0.2-1.0); TOTAL PROTEIN 6.2 g/dL (6.4-8.2)
[2020-05-14] MEDS ORDERED: POTASSIUM CHLORIDE 10MEQ 100 ML IV PRN (09:00)
[2020-05-14] MEDS: INSULIN REGULAR VIAL 100 UNIT in IV NORMAL SALINE 100ML 100 ML IV PRN (10:23)
[2020-05-14] MEDS: POTASSIUM CHLORIDE 10MEQ 100 ML IV SCH ×4 (10:23→17:06)
--- NOTE | 2020-05-14 11:05 | PDOC ---
[employer] PROGRESS NOTE Date of Service DOS: DATE: 05/14/20 TIME: 11:01 Chief Complaint Chief Complaint New diabetic with poorly controlled glucose Resolving DKA Elevated cortisol level Hyponatremia (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 History of Present Illness History of Present Illness 05/14/2020 Patient seen and examined in the ICU Discussed with RN We noted that her cortisol level is high Her anion gap is clear I gave orders for 5 units of NovoLog 3 times daily and 10 of Lantus at bedtime and we will stop her drip and transfer out of the ICU Vitals/I&O Vitals/I&O: Vital Signs Date Time Temp Pulse Resp B/P (MAP) Pulse Ox O2 Delivery O2 Flow Rate FiO2 05/14/20 10:29 99 16 95/50 (65) 99 Room Air 05/14/20 09:36 97.9 97.9 I & O 05/13/20 05/13/20 05/14/20 15:00 23:00 07:00 Intake Total 750 ml 2004 ml Output Total 400 ml 750 ml 800 ml Balance -400 ml 0 ml 1204 ml Physical Exam General: Alert, Oriented X3, Cooperative, No acute distress Heart: Regular rate Abdomen: Normal bowel sounds, Soft, No tenderness Extremities: No cyanosis, No edema Skin: No rashes Labs Labs: Laboratory Tests Test 05/13/20 11:39 05/13/20 16:20 05/13/20 17:43 05/13/20 18:10 Glucose (Fingerstick) 227 mg/dL (70-99) 213 mg/dL (70-99) 205 mg/dL (70-99) Sodium Level 122 mmol/L (136-145) Potassium Level 3.3 mmol/L (3.5-5.1) Chloride Level 90 mmol/L (98-107) Carbon Dioxide Level 19 mmol/L (21-32) Anion Gap 13 (6-14) Blood Urea Nitrogen 9 mg/dL (7-20) Creatinine 0.8 mg/dL (0.6-1.0) Estimated GFR (Cockcroft-Gault) 93.4 Glucose Level 229 mg/dL (70-99) Calcium Level 7.9 mg/dL (8.5-10.1) Phosphorus Level 1.9 mg/dL (2.6-4.7) Magnesium Level 2.0 mg/dL (1.8-2.4) Cortisol PM Sample 31.6 ug/dL (3.1-16.7) Test 05/13/20 20:05 05/13/20 21:14 05/13/20 21:20 05/13/20 22:17 Glucose (Fingerstick) 144 mg/dL (70-99) 144 mg/dL (70-99) 213 mg/dL (70-99) Urine Collection Type Unknown Urine Color Yellow Urine Clarity Clear Urine pH 5.5 (<5.0-8.0) Urine Specific [place] 1.015 (1.000-1.030) Urine Protein Negative mg/dL (NEG-TRACE) Urine Glucose (UA) 500 mg/dL (NEG) Urine Ketones (Stick) 40 mg/dL (NEG) Urine Blood Negative (NEG) Urine Nitrite Negative (NEG) Urine Bilirubin Negative (NEG) Urine Urobilinogen Dipstick 0.2 mg/dL (0.2 mg/dL) Urine Leukocyte Esterase Negative (NEG) Urine RBC 0 /HPF (0-2) Urine WBC 1-4 /HPF (0-4) Urine Squamous Epithelial Cells Few /LPF Urine Bacteria Many /HPF (0-FEW) Test 05/13/20 23:22 05/14/20 00:26 05/14/20 01:31 05/14/20 02:35 Glucose (Fingerstick) 146 mg/dL (70-99) 107 mg/dL (70-99) 126 mg/dL (70-99) 138 mg/dL (70-99) Test 05/14/20 03:44 05/14/20 04:49 05/14/20 05:53 05/14/20 07:06 Glucose (Fingerstick) 152 mg/dL (70-99) 140 mg/dL (70-99) 139 mg/dL (70-99) 146 mg/dL (70-99) Test 05/14/20 07:50 05/14/20 09:30 05/14/20 10:39 White Blood Count 7.4 x10^3/uL (4.0-11.0) Red Blood Count 3.33 x10^6/uL (3.50-5.40) Hemoglobin 10.4 g/dL (12.0-15.5) Hematocrit 29.1 % (36.0-47.0) Mean Corpuscular Volume 88 fL (79-100) Mean Corpuscular Hemoglobin 31 pg (25-35) Mean Corpuscular Hemoglobin Concent 36 g/dL (31-37) Red Cell Distribution Width 14.0 % (11.5-14.5) Platelet Count 373 x10^3/uL (140-400) Neutrophils (%) (Auto) 55 % (31-73) Lymphocytes (%) (Auto) 35 % (24-48) Monocytes (%) (Auto) 8 % (0-9) Eosinophils (%) (Auto) 0 % (0-3) Basophils (%) (Auto) 1 % (0-3) Neutrophils # (Auto) 4.1 x10^3/uL (1.8-7.7) Lymphocytes # (Auto) 2.6 x10^3/uL (1.0-4.8) Monocytes # (Auto) 0.6 x10^3/uL (0.0-1.1) Eosinophils # (Auto) 0.0 x10^3/uL (0.0-0.7) Basophils # (Auto) 0.1 x10^3/uL (0.0-0.2) Sodium Level 130 mmol/L (136-145) Potassium Level 3.1 mmol/L (3.5-5.1) Chloride Level 98 mmol/L (98-107) Carbon Dioxide Level 23 mmol/L (21-32) Anion Gap 9 (6-14) Blood Urea Nitrogen 7 mg/dL (7-20) Creatinine 0.7 mg/dL (0.6-1.0) Estimated GFR (Cockcroft-Gault) 109.0 BUN/Creatinine Ratio 10 (6-20) Glucose Level 154 mg/dL (70-99) Calcium Level 7.8 mg/dL (8.5-10.1) Phosphorus Level 3.5 mg/dL (2.6-4.7) Magnesium Level 2.1 mg/dL (1.8-2.4) Total Bilirubin 1.4 mg/dL (0.2-1.0) Aspartate Amino Transf (AST/SGOT) 16 U/L (15-37) Alanine Aminotransferase (ALT/SGPT) 20 U/L (14-59) Alkaline Phosphatase 58 U/L (46-116) Total Protein 6.2 g/dL (6.4-8.2) Albumin 3.1 g/dL (3.4-5.0) Albumin/Globulin Ratio 1.0 (1.0-1.7) Glucose (Fingerstick) 206 mg/dL (70-99) 209 mg/dL (70-99) Assessment and Plan Assessmemt and Plan Problems Medical Problems: (1) Hypomagnesemia Status: Acute New diabetic with poorly controlled glucose Resolving DKA Elevated cortisol level Hyponatremia (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 Plan Start scheduled insulin NovoLog and Lantus Diabetic education Home meds DVT prophylaxis Full code Transfer out of ICU Hope to discharge tomorrow Once discharged we will have her follow-up with endocrinology Comment Review of Relevant I have reviewed the following items bhavin (where applicable) has been applied. Medications: Current Medications Medications (Trade) Dose Ordered Sig/Marva Route PRN Reason Start Time Stop Time Status Last Admin Dose Admin Sodium Chloride 100 ml @ 25 mls/hr 1X ONCE IV 05/13/20 14:30 05/13/20 18:29 DC 05/13/20 15:17 Insulin Human Regular 100 unit/ Sodium Chloride 101 ml @ 0 mls/hr CONT PRN PRN IV PER PROTOCOL 05/13/20 14:30 05/14/20 10:23 Dextrose/Sodium Chloride 1,000 ml @ 100 mls/hr Q10H IV 05/13/20 16:30 05/14/20 01:33 Potassium Phosphate 13.6 mmol/Sodium Chloride 254.5333 ml @ 62.5 mls/hr Q4H IV 05/13/20 20:00 05/14/20 07:59 DC 05/14/20 03:27 Diltiazem HCl (Cardizem 24hr Cd) 240 mg HS PO 05/13/20 23:00 05/13/20 22:36 Lisinopril (Prinivil) 20 mg HS PO 05/13/20 23:00 05/13/20 22:37 Metformin HCl (Glucophage) 500 mg BIDWMEALS PO 05/14/20 08:00 05/14/20 08:37 Non-Formulary Medication (Rosuvastatin Calcium (Crestor)) 20 mg HS PO 05/13/20 23:00 05/13/20 22:36 Potassium Chloride/Water 100 ml @ 100 mls/hr Q1HR IV 05/14/20 10:00 05/14/20 13:59 05/14/20 10:23 Justicifation of Admission Dx: Justifications for Admission: Justification of Admission Dx: Yes EDOUARD DING III DO May 14, 2020 11:05
--- NOTE | 2020-05-14 11:11 | PDOC ---
Renal-Progress Notes Subjective Notes Notes FEELING BETTER Vitals Vitals Vital Signs Date Time Temp Pulse Resp B/P (MAP) Pulse Ox O2 Delivery O2 Flow Rate FiO2 05/14/20 11:07 95 16 98/53 (68) 100 Room Air 05/14/20 09:36 97.9 97.9 Weight Weight [ ] I.O. Intake and Output Intake and Output 05/14/20 07:00 Intake Total 2754 ml Output Total 1950 ml Balance 804 ml Intake Oral 700 ml IV Total 2054 ml Output Urine Total 1950 ml Labs Labs Laboratory Tests Test 05/13/20 11:39 05/13/20 16:20 05/13/20 17:43 05/13/20 18:10 Glucose (Fingerstick) 227 mg/dL (70-99) 213 mg/dL (70-99) 205 mg/dL (70-99) Sodium Level 122 mmol/L (136-145) Potassium Level 3.3 mmol/L (3.5-5.1) Chloride Level 90 mmol/L (98-107) Carbon Dioxide Level 19 mmol/L (21-32) Anion Gap 13 (6-14) Blood Urea Nitrogen 9 mg/dL (7-20) Creatinine 0.8 mg/dL (0.6-1.0) Estimated GFR (Cockcroft-Gault) 93.4 Glucose Level 229 mg/dL (70-99) Calcium Level 7.9 mg/dL (8.5-10.1) Phosphorus Level 1.9 mg/dL (2.6-4.7) Magnesium Level 2.0 mg/dL (1.8-2.4) Cortisol PM Sample 31.6 ug/dL (3.1-16.7) Test 05/13/20 20:05 05/13/20 21:14 05/13/20 21:20 05/13/20 22:17 Glucose (Fingerstick) 144 mg/dL (70-99) 144 mg/dL (70-99) 213 mg/dL (70-99) Urine Collection Type Unknown Urine Color Yellow Urine Clarity Clear Urine pH 5.5 (<5.0-8.0) Urine Specific [place] 1.015 (1.000-1.030) Urine Protein Negative mg/dL (NEG-TRACE) Urine Glucose (UA) 500 mg/dL (NEG) Urine Ketones (Stick) 40 mg/dL (NEG) Urine Blood Negative (NEG) Urine Nitrite Negative (NEG) Urine Bilirubin Negative (NEG) Urine Urobilinogen Dipstick 0.2 mg/dL (0.2 mg/dL) Urine Leukocyte Esterase Negative (NEG) Urine RBC 0 /HPF (0-2) Urine WBC 1-4 /HPF (0-4) Urine Squamous Epithelial Cells Few /LPF Urine Bacteria Many /HPF (0-FEW) Test 05/13/20 23:22 05/14/20 00:26 05/14/20 01:31 05/14/20 02:35 Glucose (Fingerstick) 146 mg/dL (70-99) 107 mg/dL (70-99) 126 mg/dL (70-99) 138 mg/dL (70-99) Test 05/14/20 03:44 05/14/20 04:49 05/14/20 05:53 05/14/20 07:06 Glucose (Fingerstick) 152 mg/dL (70-99) 140 mg/dL (70-99) 139 mg/dL (70-99) 146 mg/dL (70-99) Test 05/14/20 07:50 05/14/20 09:30 05/14/20 10:39 White Blood Count 7.4 x10^3/uL (4.0-11.0) Red Blood Count 3.33 x10^6/uL (3.50-5.40) Hemoglobin 10.4 g/dL (12.0-15.5) Hematocrit 29.1 % (36.0-47.0) Mean Corpuscular Volume 88 fL (79-100) Mean Corpuscular Hemoglobin 31 pg (25-35) Mean Corpuscular Hemoglobin Concent 36 g/dL (31-37) Red Cell Distribution Width 14.0 % (11.5-14.5) Platelet Count 373 x10^3/uL (140-400) Neutrophils (%) (Auto) 55 % (31-73) Lymphocytes (%) (Auto) 35 % (24-48) Monocytes (%) (Auto) 8 % (0-9) Eosinophils (%) (Auto) 0 % (0-3) Basophils (%) (Auto) 1 % (0-3) Neutrophils # (Auto) 4.1 x10^3/uL (1.8-7.7) Lymphocytes # (Auto) 2.6 x10^3/uL (1.0-4.8) Monocytes # (Auto) 0.6 x10^3/uL (0.0-1.1) Eosinophils # (Auto) 0.0 x10^3/uL (0.0-0.7) Basophils # (Auto) 0.1 x10^3/uL (0.0-0.2) Sodium Level 130 mmol/L (136-145) Potassium Level 3.1 mmol/L (3.5-5.1) Chloride Level 98 mmol/L (98-107) Carbon Dioxide Level 23 mmol/L (21-32) Anion Gap 9 (6-14) Blood Urea Nitrogen 7 mg/dL (7-20) Creatinine 0.7 mg/dL (0.6-1.0) Estimated GFR (Cockcroft-Gault) 109.0 BUN/Creatinine Ratio 10 (6-20) Glucose Level 154 mg/dL (70-99) Calcium Level 7.8 mg/dL (8.5-10.1) Phosphorus Level 3.5 mg/dL (2.6-4.7) Magnesium Level 2.1 mg/dL (1.8-2.4) Total Bilirubin 1.4 mg/dL (0.2-1.0) Aspartate Amino Transf (AST/SGOT) 16 U/L (15-37) Alanine Aminotransferase (ALT/SGPT) 20 U/L (14-59) Alkaline Phosphatase 58 U/L (46-116) Total Protein 6.2 g/dL (6.4-8.2) Albumin 3.1 g/dL (3.4-5.0) Albumin/Globulin Ratio 1.0 (1.0-1.7) Glucose (Fingerstick) 206 mg/dL (70-99) 209 mg/dL (70-99) Micro Micro Microbiology 05/13/20 Urine Culture - Final, Complete Review of Systems Constitutional: yes: alert, oriented Ears/Nose/Throat: Yes: no symptom reported Eyes: Yes: no symptom reported Pulmonary: Yes no symptom reported Cardiovascular: Yes no symptom reported Gastrointestional: Yes: no symptom reported Genitourinary: Yes: no symptom reported Musculoskeletal: Yes: no symptom reported Skin: Yes no symptom reported Psychiatric/Neurological: Yes: no symptom reported Endocrine: Yes: no symptom reported Hematologic/Lymphatic: Yes: no symptom reported Physical Exam General Appearance: no apparent distress Skin: warm, dry Respiratory: bilateral CTA Heart: S1S2 Abdomen: soft, bowel sounds present Genitourinary: bladder flat Extremities: pulses present Neurology: alert, oriented Assessment Assessment IMP SEVERE HYPONATREMIA-NEARLY RESOLVED NEW DX OF DM II HTN HX MET ACIDOSIS KETONURIA PLAN HYDRATION INSULIN S OSM PENDING URINE LYTES TSH WNL SUGGEST NOT RESUMING HCTZ WHEN GOING HOME APPARENTLY DRINKS A LOT OF WATER BECAUSE IT IS GOOD FOR HER-HAS ASKED THAT SHE DRINK ONLY FOR THIRST OSCAR MARTINEZ MD May 14, 2020 11:11
[2020-05-14] MEDS ORDERED: INSULIN GLARGINE SYRINGE. SQ ONE (11:15)
[2020-05-14] MEDS: ENOXAPARIN 40 MG/0.4 ML SYRINGE. SQ SCH (11:36)
[2020-05-14] MEDS: INSULIN LISPRO 300 UNITS/3 ML VIAL. SQ SCH ×2 (12:00→17:00)
[2020-05-14 13:14] LABS: URINE OSMOLALITY 698 mOsmol/kg (.)
[2020-05-14] MEDS: IV NORMAL SALINE 1000ML BAG 1,000 ML IV SCH ×2 (13:45→20:58)
--- NOTE | 2020-05-14 14:56 | NUR ---
SS following for discharge planning. SS reviewed pt chart and discussed with pt RN. Pt is from home and is currently on room air. No PT/OT needs. Discharge plan is to home when medically ready. Pt transferring to room 416. Lotus RIVERA, notified.
[2020-05-14] MEDS: METFORMIN 500 MG TABLET PO SCH (17:04)
--- NOTE | 2020-05-14 20:50 | NUR ---
Patient refused full Lantus dose this PM, only 5 units of scheduled Lantus administered per patient request.
[2020-05-14] MEDS: NON FORMULARY ITEM (Rosuvastatin Calcium (Crestor) 20 MG) PO SCH (20:53)
[2020-05-14] MEDS: LISINOPRIL 20 MG TABLET PO SCH (20:57)
[2020-05-14] MEDS ORDERED: DILTIAZEM 240 MG PO SCH (21:00)
[2020-05-14] MEDS ORDERED: INSULIN GLARGINE SYRINGE. SQ SCH (21:00)
[2020-05-15 03:00] VITALS: BP 114/71
[2020-05-15 07:59] VITALS: BP 154/81
[2020-05-15] MEDS: METFORMIN 500 MG TABLET PO SCH (08:08)
[2020-05-15] MEDS: INSULIN LISPRO 300 UNITS/3 ML VIAL. SQ SCH (08:13)
[2020-05-15 08:38] LABS: CREATININE 0.7 mg/dL (0.6-1.0); MAGNESIUM 1.8 mg/dL (1.8-2.4); PHOSPHORUS 3.2 mg/dL (2.6-4.7); POTASSIUM 3.2 mmol/L (3.5-5.1)
[2020-05-15] MEDS: IV NORMAL SALINE 1000ML BAG 1,000 ML IV SCH (08:56)
[2020-05-15] MEDS ORDERED: ERGOCALCIFEROL PO SCH (09:00)
[2020-05-15] MEDS: LISINOPRIL 20 MG TABLET PO SCH (09:41)
[2020-05-15] MEDS: ENOXAPARIN 40 MG/0.4 ML SYRINGE. SQ SCH (10:43)
[2020-05-15 11:58] VITALS: BP 165/77
[2020-05-15] MEDS ORDERED: DILT360C PO (11:59)
[2020-05-15] MEDS ORDERED: POTASSIUM CHLORIDE 20 MEQ TABLET.ER. PO ONE (12:00)
--- NOTE | 2020-05-15 12:33 | NUR ---
Discharge instructions and belongings reviewed with patient, home medications given back to patient. Patient will be escorted out via wheelchair by Michelle BATISTA.
== END 2020-05-15 14:14 | disposition home or self-care (01) | DRG 640 ==
LOC: ER 01:00 → ED HOLD 04:05 → 1 WEST ICU 05:20 → 5 NORTH 08:28 → 1 WEST ICU 14:35 → 4 NORTH 05-14 16:44
PROVIDERS: ADMIT Internal Medicine; ATTEND Internal Medicine
DX: E87.1 Hypo-osmolality and hyponatremia (principal); E11.10 Type 2 diabetes mellitus with ketoacidosis without coma; E83.42 Hypomagnesemia; E03.9 Hypothyroidism, unspecified; E66.01 Morbid (severe) obesity due to excess calories; Z68.28 Body mass index [BMI] 28.0-28.9, adult; I10 Essential (primary) hypertension; Z79.4 Long term (current) use of insulin; Z82.49 Family history of ischemic heart disease and other diseases of the circulatory system; E11.65 Type 2 diabetes mellitus with hyperglycemia
CPT/HCPCS: 36415; 71045; 76700; 80048; 80053; 81001; 81025; 82010; 82024; 82530; 82533; 82962; 83036; 83735; 83930; 83935; 84100; 84300; 84443; 85025; 87086; 96361; 96374; 96375; J1650; J1815; J2405; J3475; J3480; J3490; J7030; J7042; J7050; 99285-25; G0378